=== PATIENT | male | born 1945 | race Caucasian/White ===

== ENCOUNTER 2016-08-29 11:08 | Inpatient (IN) | payer MEDICARE, OTHER ==
[~2016-08-29 11:08] MED LIST: ADALAT CC60 M1 PO; FISH OIL 1,0001 EA10 PO; LIPITOR10 M1 PO; LOW DOSE ASPIRI81 M3 PO; MULTI VITAMIN1 EAC2 PO; PRILOSEC OTC20 M1 PO
[2016-08-29 12:10] LABS: BASO % 0.2 % (0-2); EOS % 1.9 % (0-7); EOSINOPHIL ABSOLUTE COUNT 0.1 tho/cmm (0.0-0.7); HCT-HEMATOCRIT 46.1 % (36.0-53.5); HGB-HEMOGLOBIN 15.9 gm/dl (13.5-17.0); IMMATURE GRANULOCYTES ABSOLUTE 0.01 tho/cmm (0-0.03); IMMATURE GRANULOCYTES PERCENT 0.2 % (0-0.3); LYMPH % 20.8 % (20-45); MCH (MEAN CORPUSCULAR HGB) 31.2 pg (28.0-32.0); MCHC MEAN CORPUSCULAR HGB CONC 34.5 % (32.0-36.0); MCV (MEAN CELL VOLUME) 90.4 fl (82.0-96.0); MEAN PLATELET VOLUME 10.8 cmc (9.4-12.4); MONO % 8.8 % (0-12); MONOCYTE ABSOLUTE COUNT 0.4 tho/cmm (0.0-1.2); NEUTROPHIL ABSOLUTE COUNT 3.3 tho/cmm (1.6-8.0); NEUTROPHIL-AUTOMATED 3.3 tho/cmm (1.6-8.0); NEUTROPHILS % 68.1 % (40-80); PLATELET COUNT 253 tho/cmm (150-450); RED CELL DISTRIBUTION WIDTH 12.9 % (12.4-16.4); WHITE BLOOD COUNT 4.9 tho/cmm (4.0-10.0)
[2016-08-29 12:21] LABS: ANION GAP 11 mmol/L (0-20); BLOOD UREA NITROGEN 12 mg/dl (6-24); CARBON DIOXIDE-VENOUS 29 mmol/L (22-32); CHLORIDE 102 mmol/l (96-110); CREATININE 1.08 mg/dl (0.60-1.30); GLUCOSE 94 mg/dL (70-110); SODIUM 138 mmol/L (135-145); eGFR VALUE FOR BLACK 81 mL/Min
[2016-08-30 05:27] LABS: BASO % 0.1 % (0-2); HCT-HEMATOCRIT 39.4 % (36.0-53.5); HGB-HEMOGLOBIN 13.4 gm/dl (13.5-17.0); IMMATURE GRANULOCYTES ABSOLUTE 0.01 tho/cmm (0-0.03); IMMATURE GRANULOCYTES PERCENT 0.1 % (0-0.3); LYMPH % 7.2 % (20-45); LYMPH ABSOLUTE COUNT 0.6 tho/cmm (0.8-4.5); MCH (MEAN CORPUSCULAR HGB) 30.9 pg (28.0-32.0); MCV (MEAN CELL VOLUME) 90.8 fl (82.0-96.0); MEAN PLATELET VOLUME 10.5 cmc (9.4-12.4); MONO % 9.8 % (0-12); MONOCYTE ABSOLUTE COUNT 0.8 tho/cmm (0.0-1.2); NEUTROPHIL ABSOLUTE COUNT 6.9 tho/cmm (1.6-8.0); NEUTROPHIL-AUTOMATED 6.9 tho/cmm (1.6-8.0); NEUTROPHILS % 82.8 % (40-80); PLATELET COUNT 242 tho/cmm (150-450); RED BLOOD COUNT 4.34 mil/cmm (4.40-5.70)
[2016-08-30 05:29] LABS: WHITE BLOOD COUNT 8.3 tho/cmm (4.0-10.0)
[2016-08-30 05:32] LABS: ANION GAP 12 mmol/L (0-20); BLOOD UREA NITROGEN 15 mg/dl (6-24); CARBON DIOXIDE-VENOUS 29 mmol/L (22-32); CHLORIDE 104 mmol/l (96-110); CREATININE 1.09 mg/dl (0.60-1.30); GLUCOSE 115 mg/dL (70-110); POTASSIUM 4.7 mmol/L (3.7-5.1); SODIUM 140 mmol/L (135-145); eGFR VALUE FOR BLACK 80 mL/Min
--- NOTE | 2016-08-30 15:03 | NUR ---
VN ROUNDING-ROUNDED ON PATIENT HE LAY IN BED. HE STILL HAS HIS PRYOR AND IT APPEARS TO BE A MAROON COLOR OUTPUT. 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 HE HAS NO OTHER QUESTIONS OR CONCERNS AT THIS TIME. I DID ENC USE OF THE INCENTIVE SPIROMETER AND HIM TO AMBULATE.
[2016-08-31] MEDS ORDERED: NORCO 5-325 TA1 EACH PO (16:05)
[2016-08-31] MEDS ORDERED: COLACE100 M1 PO (16:05)
== END 2016-08-31 18:04 | DRG 723 ==
LOC: SHSA 11:08 → ORW 15:23 → 5WD 19:15
PROVIDERS: ADMIT Urology
PROC: 8E0W8CZ Robotic Assisted Procedure of Trunk Region, Via Natural or Artificial Opening Endoscopic (ICD-10-PCS; principal; 2016-08-29)
DX: C61 Malignant neoplasm of prostate (principal); Q23.1 Congenital insufficiency of aortic valve; I10 Essential (primary) hypertension; E78.5 Hyperlipidemia, unspecified; I25.10 Atherosclerotic heart disease of native coronary artery without angina pectoris; I35.0 Nonrheumatic aortic (valve) stenosis; K21.9 Gastro-esophageal reflux disease without esophagitis
CPT/HCPCS: C9290; J0690; J1644; J2250; J2270; J3010; J7030